=== PATIENT | female | born 1960 | race Caucasian/White ===

== ENCOUNTER 2017-12-28 10:54 | Emergency (ER) | payer BC ==
--- NOTE | 2017-12-28 11:10 | ED ---
HPI Cardiac - HPI Summary HPI Summary: Patient is a 57 y/o F w/ c/o heart palpitations, light-headedness, dizziness and TORRES onsetting last night. N/V/D, abdominal pain are denied. Patient reports recent stress but notes experiencing a "fluttering" in her chest and then a "great big squeezing" and a "push" sensation in her chest. She reports Hx of palpitations but notes the squeezing sensation is new. Palpitations are reported to be intermittent, lasting 20 minutes. TORRES onset shortly afterwards. TORRES is noted to still be present and described as diffuse. Neck pain/stiffness is noted as well but patient states this is chronic. In the room, she also notes some light chest squeezing. ASA and magnesium were taken today [employer]. No PMHx of MD. Patient used to take tapazole. Hx of CA, patient had chemo. PMHx of clots in legs/lungs is denied. Penicillin allergy. PSHx of plate in left arm. FMHx of CVA, CA, afib in mother, father had cardiac stents. On triage, pain is rated 4/10, nothing is noted to aggravate/alleviate Sx. Home medications and allergies are reviewed. Patient smoked 10 cigarettes daily from [id number], reports former significant alc usage, none presently. - History of Current Complaint Chief Complaint: EDChestPainROMI Stated Complaint: PALPATATION/HEADACHE Hx Obtained From: Patient Onset/Duration: Started Days Ago - onset last night, Still Present Timing: Constant - Headache, Intermittent, Lasting Minutes - palpitation episodes last 20 minutes Current Severity: Moderate - 4/10 Pain Intensity: 4 Pain Scale Used: 0-10 Numeric - 4/10 Character: Fluttering, Pressure/Squeezing Aggravating Factor(s): Nothing Alleviating Factor(s): Nothing Associated Signs and Symptoms: Positive: Headaches, Dizziness, Lightheadedness, Palpitations, Other: - NEGATIVE: diarrhea POSITIVE: light chest squeezing. Negative: Nausea, Abdominal Pain, Vomiting - Allergy/Home Medications Allergies/Adverse Reactions: Allergies Allergy/AdvReac Type Severity Reaction Status Date / Time Penicillins Allergy Unknown Verified 12/28/17 11:01 Reaction Details Home Medications: Home Medications NK [No Home Medications Reported] 12/28/17 [History Confirmed 12/28/17] PMH/Surg Hx/FS Hx/Imm Hx Endocrine/Hematology History: Reports: Hx Thyroid Disease - graves disease Cardiovascular History: Denies: Hx Myocardial Infarction Respiratory History: Denies: Hx Pulmonary Embolism - Surgical History Surgery Procedure, Year, and Place: PSHx of left arm plate Infectious Disease History: No Infectious Disease History: Denies: Traveled Outside the [place] in Last 30 Days Review of Systems Positive: Palpitations, Chest Pain, Other - chest squeezing Negative: Abdominal Pain, Vomiting, Diarrhea, Nausea Neurological: Other - dizziness, light-headedness Positive: Headache All Other Systems Reviewed And Are Negative: Yes Physical Exam - Summary Physical Exam Summary: GENERAL: Patient is a well-developed and nourished female who is lying comfortable in the stretcher. Patient is not in any acute respiratory distress. HEAD AND FACE: Normocephalic EYES: PERRLA, EOMI x 2. EARS: Hearing grossly intact. MOUTH: Oropharynx within normal limits. NECK: Supple, trachea is midline, no adenopathy, no JVD, no carotid bruit. CHEST: Symmetric, no tenderness at palpation LUNGS: Clear to auscultation bilaterally. No wheezing or crackles. CVS: Regular rate and rhythm, S1 and S2 present, no murmurs or gallops appreciated. ABDOMEN: Soft, non-tender. Bowel sounds are normal. No abdominal abnormal pulsations. EXTREMITIES: Full ROM in all major joints, no edema, no cyanosis or clubbing. NEURO: Alert and oriented x 3. No acute neurological deficits. Speech is normal and follows commands. SKIN: Dry and warm Triage Information Reviewed: Yes Vital Signs On Initial Exam: Initial Vitals Temp Pulse Resp BP Pulse Ox 97.9 F 73 18 137/84 97 12/28/17 10:57 12/28/17 10:57 12/28/17 10:57 12/28/17 10:57 12/28/17 10:57 Vital Signs Reviewed: Yes Diagnostics - Vital Signs Vital Signs Temp Pulse Resp BP Pulse Ox 12/28/17 10:57 97.9 F 73 18 137/84 97 - Laboratory Result Diagrams: 12/28/17 11:16 12/28/17 11:16 Lab Statement: Any lab studies that have been ordered have been reviewed, and results considered in the medical decision making process. - Radiology CXR Xray Interpretation: No Acute Changes Radiology Interpretation Completed By: Radiologist - no evidence for acute disease, this report was reviewed by ed physician - EKG 1107 Cardiac Rate: NL - rate of 64 BPM EKG Rhythm: Sinus Rhythm EKG Interpretation: incomplete RBBB Re-Evaluation - Re-Evaluation First Eval Re-Evaluation Time: 12:35 Comment: Discussed results of EKG and labs with patient. Discussed possible admission of patient, patient is agreeable. Second Eval Re-Evaluation Time: 13:30 Comment: Patient agreeable with discharge Disposition - Course Course Of Treatment: Patient is a 57 y/o F w/ co heart palpitations, light- headedness, dizziness and TORRES onsetting last night. N/V/D, abdominal pain are denied. Patient reports recent stress but notes experiencing a "fluttering" in her chest and then a "great big squeezing" and a "push" sensation in her chest. She reports Hx of palpitations but notes the squeezing sensation is new. Palpitations are reported to be intermittent, lasting 20 minutes. TORRES onset shortly afterwards. TORRES is noted to still be present and described as diffuse. Neck pain/stiffness is noted as well but patient states this is chronic. In the room, she also notes some light chest squeezing. ASA and magnesium were taken today [employer]. No PMHx of MD. Physical exam was unremarkable. EKG showed normal sinus rhythm w/ rate of 64 BPM, incomplete RBBB. CXR showed no evidence for acute disease. abs showed D-dimer < 200, lactic acid 1.0, trop negative, BNP 29 , TSH 1.42, free T4 0.76. Patient's case was discussed with Dr. Lazcano at 1241, Dr. Lazcano will review patient's case. 1330 - Dr. Lazcano has reviewed patient, saw her in consultation and recommends patient be discharged to home and receive workup as an outpatient. Discussed results with patient and she reports feeling better. She is hemodynamically stable and safe for discharge. Strict return precautions given and she will otherwise follow up with ornamental plaster sticker. Patient was agreeable with this. Dx of chest pain. - Diagnoses Provider Diagnoses: Chest pain - Physician Notifications Discussed Care Of Patient With: Raji Lazcano Time Discussed With Above Provider: 12:41 Instructed by Provider To: Other - Patient's case was discussed with Dr. Lazcano at 1241, Dr. Lazcano will review patient's case. 1330 - Dr. Lazcano has reviewed patient, recommends patient be discharged to home and receive workup as an outpatient. Discharge - Sign-Out/Discharge Documenting (check all that apply): Patient Departure - admit - Discharge Plan Condition: Stable Disposition: HOME Patient Education Materials: Chest Pain (ED) Referrals: [facility] [Provider Group] - 3 Days Additional Instructions: Follow up with a ornamental plaster sticker in 1-3 days. RETURN TO THE EMERGENCY DEPARTMENT FOR CHANGING OR WORSENING SYMPTOMS. - Billing Disposition and Condition Condition: STABLE Disposition: Home - Attestation Statements Document Initiated by Scribe: Yes Documenting Scribe: Escobar Daugherty Provider For Whom Scribe is Documenting (Include Credential): Sidra Belle MD Scribe Attestation: Escobar Penny , scribed for Sidra Belle MD on 12/28/17 at 2121. Scribe Documentation Reviewed: Yes Provider Attestation: The documentation as recorded by the Escobar sarmiento accurately reflects the service I personally performed and the decisions made by Sidra langley MD
[2017-12-28 11:32] LABS: ABS Basophils 0 10^3/ul (0-0.2); ABS Eosinophils 0.1 10^3/ul (0-0.6); ABS Lymphocytes 2.1 10^3/ul (1.0-4.8); ABS Monocytes 0.5 10^3/ul (0-0.8); ABS Neutrophils 3.4 10^3/ul (1.5-7.7); ABS Nucleated RBC 0 10^3/ul; Eosinophil % 1.6 % (0-6); Hematocrit 41 % (35-47); Hemoglobin 13.7 g/dl (12.0-16.0); Lymphocyte % 34.6 % (25-47); Mean Corpuscular HGB Conc 34 g/dl (31-36); Mean Corpuscular Hemoglobin 31 pg (27-31); Mean Corpuscular Volume 91 fL (80-97); Nucleated Red Blood Cells % 0.1; Platelet Count 209 10^3/ul (150-450); Red Blood Count 4.46 10^6/ul (4.00-5.40); Red Cell Distribution Width 13 % (10.5-15); White Blood Count 6.2 10^3/ul (3.5-10.8)
[2017-12-28 11:48] LABS: EGFR Non-African American 75.3 (>60)
--- NOTE | 2017-12-28 12:06 | RAD ---
INDICATION: Chest pain. COMPARISON: There are no relevant prior studies available for comparison. TECHNIQUE: A portable view of the chest was obtained. FINDINGS: Cardiac and mediastinal contours appear to be within normal limits. The lungs are clear. No pleural effusion is seen. IMPRESSION: NO EVIDENCE FOR ACUTE DISEASE.
[2017-12-28 12:15] LABS: INR 0.93 (0.77-1.02)
--- NOTE | 2017-12-28 13:40 | CONSULT ---
Subjective Date of Service: 12/28/17 Interval History: The patient c/o band-like pain BL arouund lower ribs to back with mid thoracic back pain. She states the pain is "mild" and comes and goes, sometimes with "palpitations" sometimes not. She has had palpitations while in the ED. The pain has been present most of the day. She was very uncertain if she has had this pain off and on for months or more. No SOB or other assoc sx's. Occ lightheaded but never fell down or passed out. She never had a Holter or a stress test. She has continued all her usual activities such as gardening, going up and down stairs, taking walks. Her is present and confirms she seems to have full strength is all extremities. She states she has been under great stress recently, having stayed in [place] for 3 weeks to help her 's parents move into an assisted living facility. She returned to [place] about 4 days ago. Review of Systems - Measurements Intake and Output: Intake and Output Last 24 Hours 12/26/17 12/27/17 12/28/17 12/29/17 06:59 06:59 06:59 06:59 Weight 145 lb - Review of Systems Constitutional Symptoms: Negative: Weight Gain, Weight Loss, Weakness, Fatigue, Fever, Night Sweats, Unexplained Falls, Other Dermatology: Positive: Normal HEENT: Positive: Normal Eyes: Positive: Normal Thyroid: Positive: Other - Grave's disease in remission, sees Dr. Rudd Pulmonary: Positive: Normal Cardiology: Positive: Chest Pain Gastroenterology: Positive: Normal Genital - Urinary: Positive: Normal Endocrinology: Positive: Thyroid Problems Hematologic/Lymphatic: Negative: Anemia, Easy Brusing, Hx Leukemia, Hx Lymphoma, Use of Anticoagulant, Use of Antiplatelet Drugs, Other Neurology: Positive: Normal Psychiatry: Positive: Anxiety Allergic/Immunologic: Negative: Hx Anaphylaxis, Hx Angioedema, Hx Environmental, Hx Seasonal, Athsma, Hx HIV, Immunocompromise, Swollen Glands LymphNodes, Other Objective Vital Signs - 8 hr 12/28/17 12/28/17 12/28/17 10:57 11:10 11:11 Temperature 97.9 F Pulse Rate 73 67 64 Respiratory 18 16 13 Rate Blood Pressure 137/84 135/83 (mmHg) O2 Sat by Pulse 97 98 98 Oximetry 12/28/17 12/28/1718 12:00 12:08 13:00 Temperature Pulse Rate 61 59 Respiratory 13 14 Rate Blood Pressure (mmHg) O2 Sat by Pulse 99 97 98 Oximetry Oxygen Devices in Use Now: None Appearance: Alert, partly up on ED stretcher. Anxious. Eyes: No Scleral Icterus Ears/Nose/Mouth/Throat: Clear Oropharnyx, Mucous Membranes Moist Neck: NL Appearance and Movements; NL JVP, No Thyroid Enlargement, Masses Respiratory: Symmetrical Chest Expansion and Respiratory Effort, Clear to Auscultation, Clear to Percussion Cardiovascular: NL Sounds; No Murmurs; No JVD, RRR, No Edema, - Abdominal: NL Sounds; No Tenderness; No Distention, No Hepatosplenomegaly, - Extremities: No Edema, No Clubbing, Cyanosis, - Skin: No Rash or Ulcers, No Nodules or Sclerosis, - Neurological: Alert and Oriented x 3, NL Sensation - Full strength foor flexion and dorsiflecion, can raise both legs off bed w/resistance. Handgirps string BL. Result Diagrams: 12/28/17 11:16 12/28/17 11:16 Assessment/Plan - Billing Plan By Medical Problem: 1. Chest pain. Possibly radicular pain related to spine/nerve root disease. Consider outpt CT or MRI. I don't think her pain is cardiac in nature and a stress test may not be needed. 2. Palpitations. Consider outpt Holter monitor. She seems to be having palpitations in the ED while in NSR, so this could be clarified by a 24 hr Holter if she keeps a good diary. Patient will be seen by Ariana Fajardo on 01/03 at 1 PM.
[2017-12-28 14:39] VITALS: BP 134/83
== END 2017-12-28 15:09 | disposition home or self-care (01) ==
LOC: ED 10:54
DX: R07.89 Other chest pain (principal); R00.2 Palpitations; R42 Dizziness and giddiness; R51 Headache; Z88.0 Allergy status to penicillin
CPT/HCPCS: 36415; 71045; 80053; 83605; 83735; 83880; 84439; 84443; 84484; 85025; 85379; 85610; 85730; 93005; 99283